=== PATIENT | male | born 1980 | race African-American/Black ===

== ENCOUNTER 2020-06-22 05:58 | Observation (INO) | payer OTHER, SELFPAY ==
[2020-06-22] VITALS (22 sets, daily range): BP systolic 126–166; BP diastolic 64–104; PULSE 49–80; RESP 9–20; TEMP 36.1–37.1; O2SAT 83–100; BMI 28.8
--- NOTE | 2020-06-22 | PATH_ITS ---
[facility] Accession Number: [id number] . 01 Material submitted: . gallbladder - GALLBLADDER AND CONTENTS . 01 Clinical history: . SEVERE STOMACH PAIN X 4 DAYS . 02 Diagnosis: Gallbladder and Contents, Cholecystectomy: Cholelithiasis with mild chronic and active cholecystitis. One benign cystic duct lymph node. No evidence of neoplasm. MRV 06/27/2020 1615 Local . 02 Electronically signed: . Christ Espinosa MD, PhD, Pathologist NPI- [id number] . 01 Gross description: . Received in formalin, labeled gallbladder and contents, and consists of an 8.0 x 3.0 x 2.2 cm partially disrupted gallbladder with a 0.2 cm in diameter cystic duct. The serosa is serra-pink and smooth. Opening reveals serra-green mucoid material. There is a 1.2 x 1.0 x 1.0 cm serra-green bosselated cholelith firmly lodged within the neck of the specimen. The mucosa is serra-pink and velvety, and the wall thickness measures 0.2 cm. A 1.2 x 0.8 x 0.7 cm serra pericystic lymph node is identified. Wax Blender sections are submitted. . A1: cystic duct margin, en face (black), cystic duct cross-section and body and fundus. A2: bisected lymph node. ([id number]) /MRV 06/23/2020 1414 Local . 02 Pathologist provided ICD-10: K80.67, K81.2 . 02 CPT . 758203 Performed at: [address] [facility] [address], [place], [place] [id number] MD Jose Guadalupe Garg MD Phone: [phone] Performed at: [facility] [place] [address] [place] [id number] MD Deana Alvarez MD Phone: [phone]
[2020-06-22] MEDS: HYDROMORPHONE 0.5 MG INJ IV ×2 (07:08→08:04)
[2020-06-22] MEDS: SODIUM CHLORIDE 0.9% 1,000 ML 1000 ML IV (07:09)
[2020-06-22] MEDS: ONDANSETRON 4 MG/2 ML INJ IV (07:09)
[2020-06-22 07:21] LABS: Add Manual Diff / Slide Review NO; Alanine Aminotransferase 48 IU/L (<50); Albumin 3.9 g/dL (3.5-5.0); Albumin Globulin Ratio 1.1 (1.0-2.8); Alkaline Phosphatase 94 U/L (38-126); Aspartate Aminotransferase 41 IU/L (17-59); Basophils Absolute Auto 0 /uL (0-100); Basophils Percent Auto 0.5 % (0-2); Bilirubin Total 0.5 mg/dL (0.2-1.3); Blood Urea Nitrogen 12 mg/dL (9-20); Calcium 8.9 mg/dL (8.4-10.2); Carbon Dioxide 29 mmol/L (22-32); Chloride 107 mmol/L (98-107); Eosinophils Absolute Auto 200 /uL (0-450); Eosinophils Percent Auto 1.6 % (2-4); Estimated Glomerular Filt Rate > 60.0 mL/min (>60); Globulin 3.6 g/dL (1.7-4.1); Glucose 110 mg/dL (70-100); HEMOLYSIS < 15 (0-50); Hematocrit 47.8 % (41-53); Hemoglobin 15.5 g/dL (13.5-17.5); Lipase 48 U/L (23-300); Lymphocytes Absolute Auto 2100 /uL (1100-4500); Lymphocytes Percent Auto 20.9 % (25-40); Mean Corpuscular HGB Conc 32.3 % (30-36); Mean Corpuscular Hemoglobin 28.8 PG (26-34); Mean Corpuscular Volume 89.1 fL (80-100); Monocytes Absolute Auto 600 /uL (0-900); Monocytes Percent Auto 6.3 % (3-14); Neutrophils Absolute Auto 7100 /uL (1500-7000); Neutrophils Percent Auto 70.7 % (50-75); Platelet Count 295 X10^3/uL (150-400); Potassium 4.1 mmol/L (3.4-5.1); Red Blood Cell Count 5.37 X10^6/uL (4.5-5.9); Red Cell Distribution Width 14.7 % (11.6-14.8); Sodium 138 mmol/L (137-145); Total Protein 7.5 g/dL (6.3-8.2); White Blood Cell Count 10.1 X10^3/uL (4.5-11.0)
--- NOTE | 2020-06-22 07:29 | ED_ITS ---
HPI - Abdominal Pain General Chief Complaint: Abdominal Pain Stated Complaint: Severe stomach pain x4 days Time Seen by Provider: 06/22/20 06:07 Source: patient Mode of arrival: Ambulatory Limitations: no limitations History of Present Illness HPI narrative: 40M non smoker with history of gallbladder disease presents with his and the chief complaint of 4 days of worsening epigastric and RUQ pain. His pain seems to be gradually worsening, associated with nausea and is likely worsened by eating and drinking. He denies use of alcohol or street drugs. He denies any recent injury or dietary change. He was seen and evaluated at an outside facility over the summer and had a very thorough evaluation with shad ssuring lab work but imaging suggesting the possibility of a gallstone in the absence of findings consistent with cholecystitis. His last oral intake was 10:00 p.m. last night. He denies classic symptoms of COVID-19 such is headache, sore throat, cough, shortness of breath or fever. MD complaint: abdominal pain Onset (ago): hour(s) Pain Consistency: constant Location: RUQ and epigastric Severity: severe Quality: cramping and stabbing Radiation: RUQ and epigastric Relieving factors: nothing Exacerbating factors: eating Associated symptoms: nausea Related Data Home Medications Medication Instructions Recorded Confirmed No Known Home Medications 06/22/20 06/22/20 Allergies Allergy/AdvReac Type Severity Reaction Status Date / Time No Known Drug Allergies Allergy Verified 06/22/20 08:03 Review of Systems Constitutional Constitutional: Denies chills, Denies fatigue, Denies fever(s), Denies frequent falls, Denies lethargy and Denies weakness Eyes Eyes: Denies change in vision, Denies eye discharge, Denies irritation and Denies loss of vision ENT Ears, Nose, Mouth, and Throat: Denies change in voice, Denies dizziness, Denies neck pain, Denies sore throat and Denies throat swelling Cardiovascular Cardiovascular: Denies chest pain, Denies irregular heart rhythm, Denies lightheadedness, Denies palpitations, Denies dyspnea, Denies dyspnea on exertion and Denies orthopnea Respiratory Respiratory: Denies cough, Denies dyspnea, Denies dyspnea on exertion and Denies wheezing Gastrointestinal Gastrointestinal: Reports abdominal pain, Denies change in bowel habits, Denies diarrhea, Reports nausea and Denies vomiting Musculoskeletal Musculoskeletal: Denies neck pain and Denies numbness Integumentary/Breasts Skin/Breast: Denies pruritus, Denies erythema, Denies rash and Denies wounds Neurologic Neurologic: Denies behavioral changes, Denies confusion, Denies dizziness, Denies frequent falls, Denies loss of vision, Denies numbness and Denies weakness Psychiatric Psychiatric: Denies anxiety, Denies behavioral changes, Denies confusion, Denies depression, Denies homicidal ideation and Denies suicidal ideation Endocrine Endocrine: Denies fatigue, Denies flushing and Denies palpitations Hematologic/Lymphatic Hematologic/Lymphatic: Denies easy bruising Allergic/Immunologic Allergic/Immunologic: Denies urticaria, Denies throat swelling and Denies wheezing Patient History Medical History History of femur fracture (Acute) Social History household members: spouse Smoking Status: Current every day smoker alcohol intake: current Smoking Status: Current every day smoker alcohol intake frequency: a few times a month Substance Use Type: does not use Exam Narrative Exam Narrative: GENERAL: [40] year old patient appears stated age. Well- nourished, well-developed patient, in mild distress. Holding an emesis bag, rubbing his upper abdomen, clearly in pain HEAD: Atraumatic. Normocephalic. EYES: Pupils equal round and reactive. Extraocular motions intact. No scleral icterus. No injection or drainage. ENT: Nose without bleeding, purulent drainage. Throat without erythema, tonsillar hypertrophy or exudate. Airway patent. NECK: Trachea midline. Non tender CARDIOVASCULAR: Regular rate and rhythm without murmurs, gallops, or rubs. RESPIRATORY: Clear to auscultation. Breath sounds equal bilaterally. No wheezes, rales, or rhonchi. GASTROINTESTINAL: Abdomen soft, significant tenderness in the epigastrium and right upper quadrant, nondistended. EXTREMITIES: No edema or joint tenderness. BACK: Nontender without deformity or crepitance. No flank tenderness. NEURO: AOx3. SKIN: No rash or erythema of visible areas Initial Vital Signs Initial Vital Signs: Vital Signs Temperature 98.7 F 06/22/20 06:05 Pulse Rate 60 06/22/20 06:05 Respiratory Rate 18 06/22/20 06:05 Blood Pressure 162/95 H 06/22/20 06:05 Pulse Oximetry 100 06/22/20 06:05 Course Orders Ordered: ED Orders 06/22/20 06:10 Complete Blood Count AUTO DIFF Stat Comprehensive Metabolic Panel Stat Lipase Stat 06/22/20 07:32 US abdomen limited Stat 06/22/20 08:56 COVID19 -ED/INPAT/OR/L&D Stat Acetaminophen (Tylenol) 975 mg PO PACUNOW PRN PRN Reason: Pain, Mild (1-3) Albuterol (Ventolin) 2.5 mg INH NOW PRN PRN Reason: Coughing, Wheezing, Dyspnea Benzocaine (Cepacol Lozenge) 1 each PO PRN PRN PRN Reason: Sore Throat Fentanyl (Sublimaze) 0 mcg IV Q5M PRN PRN Reason: Pain, Moderate (4-6) Hydromorphone HCl (Dilaudid) 0 mg IV Q5M PRN PRN Reason: Pain, Moderate (4-6) Hydroxyzine HCl (Vistaril) 25 mg IM NOW PRN PRN Reason: Pain, Mild (1-3) Lactated Ringer's (Lactated Ringers) 1,000 mls @ 42 mls/hr IV CONT [facility] Last Admin: 06/22/20 11:52 Dose: 42 mls/hr Documented by: AKUNZE Lactated Ringer's (Lactated Ringers) 1,000 mls @ 150 mls/hr IV CONT [facility] Last Admin: 06/22/20 12:51 Dose: Not Given Documented by: CWOOD Lactated Ringer's (Lactated Ringers) 1,000 mls @ 120 mls/hr IV CONT [facility] Lorazepam (Ativan) 0.25 mg IV NOW PRN PRN Reason: Anxiety Meperidine HCl (Demerol) 25 mg IV PACUNOW PRN PRN Reason: Moderate pain or shivering Metoclopramide HCl (Reglan) 10 mg IV NOW PRN PRN Reason: Nausea And Vomiting Ondansetron HCl (Zofran) 4 mg IV NOW PRN PRN Reason: Nausea And Vomiting Oxycodone HCl (Percolone) 5 mg PO PACUNOW PRN PRN Reason: Mild or moderate pain Discontinued Medications Bupivacaine HCl (Sensorcaine 0.5% (Pf)) 30 ml INJ NOW ONE Stop: 06/22/20 12:28 Last Admin: 06/22/20 12:27 Dose: 20 ml Documented by: FITO Hydromorphone HCl (Dilaudid) 0.5 mg IV NOW ONE Stop: 06/22/20 07:00 Last Admin: 06/22/20 07:08 Dose: 0.5 mg Documented by: ROSENDA Hydromorphone HCl (Dilaudid) 0.5 mg IV NOW ONE Stop: 06/22/20 07:43 Last Admin: 06/22/20 08:04 Dose: 0.5 mg Documented by: VEE Sodium Chloride (Normal Saline 0.9%) 1,000 mls @ 1,000 mls/hr IV BOLUS ONE Stop: 06/22/20 07:58 Last Infusion: 06/22/20 09:08 Dose: 0 mls/hr Documented by: Admin: 06/22/20 07:09 Dose: 1,000 mls/hr Documented by: ROSENDA Cefazolin Sodium/Dextrose (Ancef) 2 gm in 100 mls @ 200 mls/hr IV INTRA-OP ONE Stop: 06/22/20 11:50 Last Infusion: 06/22/20 12:15 Dose: 0 mls/hr Documented by: Admin: 06/22/20 11:55 Dose: 200 mls/hr Documented by: JESSICA Ondansetron HCl (Zofran) 4 mg IV NOW ONE Stop: 06/22/20 07:00 Last Admin: 06/22/20 07:09 Dose: 4 mg Documented by: ROSENDA Consultations Consultation #1: Call to General surgery for consultation regarding concern for biliary etiology of on going pain Vital Signs Vital signs: Vital Signs - 8 hr 06/22/20 06:05 06/22/20 07:17 06/22/20 07:30 Temperature 98.7 F Pulse Rate 60 51 L 52 L Respiratory Rate 18 14 17 Blood Pressure 162/95 H 152/94 H 162/97 H Pulse Oximetry 100 98 99 06/22/20 08:00 06/22/20 08:30 06/22/20 08:39 Temperature Pulse Rate 49 L 55 L 56 L Respiratory Rate 16 15 15 Blood Pressure 159/91 H 155/89 H 146/94 H Pulse Oximetry 99 98 100 06/22/20 09:00 06/22/20 09:30 Temperature Pulse Rate 59 L 57 L Respiratory Rate 20 20 Blood Pressure 148/92 H 136/84 Pulse Oximetry 98 98 MDM - Abdominal Pain Lab Data Result diagrams: 06/22/20 06:10 06/22/20 06:10 Labs: Lab Results 06/22/20 06/22/20 06/22/20 Range/Units 06:10 06:10 08:56 WBC 10.1 (4.5-11.0) X10^3/uL RBC 5.37 (4.5-5.9) X10^6/uL Hgb 15.5 (13.5-17.5) g/dL Hct 47.8 (41-53) % MCV 89.1 (80-100) fL MCH 28.8 (26-34) PG MCHC 32.3 (30-36) % RDW 14.7 (11.6-14.8) % Plt Count 295 (150-400) X10^3/uL Neut % (Auto) 70.7 (50-75) % Lymph % (Auto) 20.9 L (25-40) % [place] % (Auto) 6.3 (3-14) % Eos % (Auto) 1.6 L (2-4) % Baso % (Auto) 0.5 (0-2) % Neut # (Auto) 7100 H (1941-6795) /uL Lymph # (Auto) 2100 (3700-8332) /uL [place] # (Auto) 600 (0-900) /uL Eos # (Auto) 200 (0-450) /uL Baso # (Auto) 0 (0-100) /uL Sodium 138 (137-145) mmol/L Potassium 4.1 (3.4-5.1) mmol/L Chloride 107 (98-107) mmol/L Carbon Dioxide 29 (22-32) mmol/L BUN 12 (9-20) mg/dL Creatinine 0.86 (0.66-1.25) mg/dL Estimated GFR > 60.0 (>60) mL/min BUN/Creatinine Ratio 14.0 (6-22) Glucose 110 H (70-100) mg/dL Calcium 8.9 (8.4-10.2) mg/dL Total Bilirubin 0.5 (0.2-1.3) mg/dL AST 41 (17-59) IU/L ALT 48 (<50) IU/L Alkaline Phosphatase 94 (38-126) U/L Total Protein 7.5 (6.3-8.2) g/dL Albumin 3.9 (3.5-5.0) g/dL Globulin 3.6 (1.7-4.1) g/dL Albumin/Globulin Ratio 1.1 (1.0-2.8) Lipase 48 (23-300) U/L COVID-19 PCR Negative (Negative) Discharge Plan Departure Patient Disposition: Admitted as Observation Clinical Impression: Cholelithiasis with acute cholecystitis Qualifiers: Biliary obstruction: without biliary obstruction Qualified Code(s): K80.00 - Calculus of gallbladder with acute cholecystitis without obstruction Discharge Date/Time: 06/22/20 10:47 Admit Date/Time: 06/22/20 09:57 Admit Provider: Silvestre Humphreys
--- NOTE | 2020-06-22 07:32 | DI.US.S_ITS ---
PROCEDURE: US ABDOMEN LIMITED INDICATIONS: EPIGASTRIC PAIN TECHNIQUE: Limited abdominal ultrasound with real-time scanning performed of the right upper quadrant and image documentation. COMPARISON: None. FINDINGS: Liver: Geographic areas of increased hepatic parenchymal attenuation consistent with steatosis. Normal size of the liver. No focal hepatic mass. Portal vein is patent and normal in caliber. Gallbladder: No gallbladder wall thickening or pericholecystic fluid. Small 6-7 millimeter gallstone in the fundus. Biliary ducts: No intrahepatic or extrahepatic biliary ductal dilatation. Pancreas: Visualized portions of the pancreas are sonographically normal. IMPRESSION: Small gallstone with no findings of cholecystitis. Geographic hepatic steatosis. Dictated by: Smith Waldron M.D. on 06/22/2020 at 8:42 Approved by: Smith Waldron M.D. on 06/22/2020 at 8:44
--- NOTE | 2020-06-22 07:38 | PC.NURSE ---
pt spouse out to nursing station, reports husbands pain has increased.
[2020-06-22 09:21] LABS: COVID19 -Nasal RAPID Negative (Negative)
--- NOTE | 2020-06-22 09:55 | PM.HP.1 ---
History of Present Illness History of Present Illness Date Patient Seen: 06/22/20 Time Patient Seen: 09:55 Chief complaint: Severe stomach pain x4 days Narrative: The patient is a gentleman who has been having intermittent mid abdominal and right upper quadrant pain since February. The episodes are becoming more frequent and more intense. This week he has had them for days in a row. He does not associate them with any specific food but he is not on a low-fat diet. He is nauseated but has not vomited. No history of ulcers. Presently his been medicated with pain medicine and is comfortable. This episode has lasted over night. No history of jaundice. Patient History Medical History (Updated 06/22/20 @ 09:58 by López Mishra DO) History of femur fracture (Acute) Family & Social History Safety & Behavioral: Feels Safe in Current Yes Environment Tobacco & Substance use: Smoking Status Current every day smoker alcohol intake frequency a few times a month Substance Use Type does not use Meds Home Medications and Allergies Allergies Allergy/AdvReac Type Severity Reaction Status Date / Time No Known Drug Allergies Allergy Verified 06/22/20 08:03 Review of Systems Review of Systems Narrative: Patient denies double vision pain is eyes earache sore throats. He is nearsighted. No tooth aches. No trouble swallowing. No cough cold. He had did have asthma as a child but has not had any problems since he was a teen. No heart problems or murmurs. No high blood pressure. No black or bloody bowel movements. No vomiting of blood. No history of ulcers. No problems urinating. No blood in his urine or history of kidney stones. No seizures or blackouts. No anxiety or depression. No unusual bruising or bleeding. No new skin issues or lesions. Exam Vital Signs (past 8 hours): - 06/22/20 06:05 06/22/20 07:17 06/22/20 07:30 Temperature 98.7 F Pulse Rate 60 51 L 52 L Respiratory Rate 18 14 17 Blood Pressure 162/95 H 152/94 H 162/97 H Pulse Oximetry 100 98 99 06/22/20 08:00 06/22/20 08:30 06/22/20 08:39 Temperature Pulse Rate 49 L 55 L 56 L Respiratory Rate 16 15 15 Blood Pressure 159/91 H 155/89 H 146/94 H Pulse Oximetry 99 98 100 Oxygen Delivery Method Room Air Narrative Exam Narrative: Cooperative no apparent distress. Eyes are nonicteric. Pupils equal round reactive to light. Conjunctivae are pink. Ears without lesion. He has a roberto. Oral mucosa is dry no open lesions. Teeth are intact. There are no masses or nodes in the neck or supraclavicular areas. Trachea is midline mobile. Thyroid is not enlarged. The no bruit in the neck. Lungs are clear to auscultation without rales or rhonchi. Equal percussion. Heart regular rate and rhythm without murmur gallop. No heave lift or thrill. Abdomen is scaphoid soft. Nontender at this time. No hernias appreciated. No masses. Liver and spleen are not palpably enlarged. Patient's pedal pulses are 2+ dorsalis pedis and tibialis posterior. His legs are hairless (by history chronically so) but he does have hair on his toes. Patient is alert and oriented x3. Speech rate and content are appropriate. Affect is appropriate. I do not see any open lesions of his skin. Objective Labs Result Diagrams: 06/22/20 06:10 06/22/20 06:10 Labs: Laboratory Results - last 24 hr 06/22/20 06/22/20 06/22/20 06:10 06:10 08:56 WBC 10.1 RBC 5.37 Hgb 15.5 Hct 47.8 MCV 89.1 MCH 28.8 MCHC 32.3 RDW 14.7 Plt Count 295 Neut % (Auto) 70.7 Lymph % (Auto) 20.9 L [place] % (Auto) 6.3 Eos % (Auto) 1.6 L Baso % (Auto) 0.5 Neut # (Auto) 7100 H Lymph # (Auto) 2100 [place] # (Auto) 600 Eos # (Auto) 200 Baso # (Auto) 0 Sodium 138 Potassium 4.1 Chloride 107 Carbon Dioxide 29 BUN 12 Creatinine 0.86 Estimated GFR > 60.0 BUN/Creatinine Ratio 14.0 Glucose 110 H Calcium 8.9 Total Bilirubin 0.5 AST 41 ALT 48 Alkaline Phosphatase 94 Total Protein 7.5 Albumin 3.9 Globulin 3.6 Albumin/Globulin Ratio 1.1 Lipase 48 COVID-19 PCR Negative Assessment & Plan Assessment & Plan narrative: Patient with signs and symptoms consistent with symptomatic gallbladder disease. No history or evidence of an elevated bilirubin. Liver function tests have been normal. I would recommend removal of his gallbladder. I have discussed the operation with him including length rationale postoperative issues people encounter. Discussed risks of bleeding, infection, injury to internal organs or ducts which would require major operation to repair, bile leakage and possible hernia. He appears to understand and wishes to proceed.
[2020-06-22] MEDS: LACTATED RINGERS 1,000 ML 42 ML IV ×2 (11:52→14:05)
[2020-06-22] MEDS: CEFAZOLIN 2 GM/100 ML FROZ.PIGGY IV (11:55)
[2020-06-22] MEDS: BUPIVACAINE 0.5% (PF) VIAL 30 ML INJ (12:27)
--- NOTE | 2020-06-22 12:30 | SUR.OPER ---
Supine on padded OR bed, head on pillow, safety belt at thigh, bilateral arms secured on padded arm board <90 degrees abduction. Legs uncrossed. Padded footboard in place. Tape over blanket to secure lower legs.
--- NOTE | 2020-06-22 13:49 | PM.OP.1 ---
Operative Date/Time/Diagnoses Date of procedure: 06/22/20 Time of procedure: 13:49 Pre-op diagnosis: Cholelithiasis cholecystitis Post-op diagnosis: same (Acute cholecystitis with cholelithiasis) Procedure & Clinicians Procedure: Laparoscopic cholecystectomy Same procedure as scheduled: Yes Indications: Intermittent epigastric and right upper quadrant pain with an abnormal ultrasound of the gallbladder Surgeon: Silvestre Byrnes Yes if Unassisted: Yes Anesthesia Type: General Operative Notes Findings: Edematous gallbladder wall. Mucous within the gallbladder itself which was cultured Closure Type: primary Specimen(s): other (Gallbladder) Prosthetic devices, grafts, tissues, transplants, or devices: None Estimated Blood Loss (mL): 5 Procedure in detail: The patient was placed supine on the operating room table and underwent general endotracheal anesthesia. The patient was prepped and draped in the usual fashion. Local anesthetic was infiltrated near the umbilicus and curvilinear incision made and carried down through fascia into the peritoneal cavity. Stay sutures of 0 Vicryl were placed in the fascia. A 12 mm port was placed. The abdomen was insufflated. The patient was repositioned. Local anesthetic was infiltrated in 3 areas under the right costal margin and 3 small incisions made followed by placing 3 5 mm ports under direct laparoscopic camera vision internally. The gallbladder was grasped and elevated. Dissection was begun near its end. A ductal structure singular nature going directly the gallbladder was identified. Some small vascular structures were also identified and there was an artery distinctly attached to the cystic duct. The cystic duct and it was out and 3 clips were placed across each of the structures a were divided leaving 2 in the patient.. The gallbladder was then dissected from its bed in the liver using cautery. It was detached and removed through the umbilical port. The right upper quadrant was examined and irrigated and suctioned free of fluid. Meticulous hemostasis was achieved with cautery. The port sites were all irrigated. The stay sutures at the umbilicus were elevated. A 2 0 PDS suture was placed between them. The Vicryl and PDS sutures were then tied. Local anesthetic was infiltrated around each of the incisions. The skin in all areas was closed with interrupted 4 0 Vicryl subcuticular stitches. Steri-Strips and Mastisol were applied. Band-Aids were placed and the patient was awakened, extubated and taken to the recovery area in good condition. Patient tolerated the procedure well Complications: none Post-operative Condition: stable Disposition: PACU
[2020-06-22] MEDS: KETOROLAC 30 MG/ML VIAL IV (14:13)
[2020-06-22] MEDS: HYDROMORPHONE 2 MG INJ IV (14:16)
--- NOTE | 2020-06-22 14:42 | SUR.PHASEI ---
Report called to Aidee Corcoran
--- NOTE | 2020-06-22 14:59 | SUR.PHASEI ---
Patient transferred to the floor. VS stable. IV saline locked. Abd dressings CDI. Report given to Aidee.
--- NOTE | 2020-06-22 15:27 | PC.NURSE ---
Post-op: Pt returned from OR at 1450, is disoriented, doesn't feel well. Spouse is at bedside. She is comforting to him. Minimal pain at the moment. Has not voided since surgery. Spouse prepared about pt's disorientation before he arrived. He feels better with her beside him. Has not taken any fluids yet. Sleepy for now. Will cont to observe LOC and ensure pt can intake fluids and void.
== END 2020-06-22 17:52 | disposition home or self-care (01) ==
LOC: ED 09:58 → AC 09:58
PROVIDERS: Admitting Provider Specialist; Emergency Provider Emergency Medicine; Visit Provider Specialist
PROC: 0FT44ZZ Resection of Gallbladder, Percutaneous Endoscopic Approach (ICD-10-PCS; CPT 47562; principal; 2020-06-22 12:00)
DX: K80.00 Calculus of gallbladder with acute cholecystitis without obstruction (principal); R10.11 Right upper quadrant pain; F17.210 Nicotine dependence, cigarettes, uncomplicated; Z11.59 Encounter for screening for other viral diseases
CPT/HCPCS: 47562; 36415; 76705; 80053; 81003; 83690; 85025; 87070; 87075; 87205; 87635; 96361; 96374; 96375; 96376; 99219; 99284; G0378; J0330; J0690; J1100; J1170; J1885; J2250; J2405; J2704; J3010

== ENCOUNTER 2023-03-24 10:20 | Emergency (ER) | payer SELFPAY ==
[2020-06-22 14:03] VITALS: BMI 28.8
[2023-03-24] VITALS (13 sets, daily range): BP systolic 156–189; BP diastolic 93–122; PULSE 64–83; RESP 10–17; TEMP 36.6; O2SAT 97–100; BMI 28.8
--- NOTE | 2023-03-24 10:25 | DI.RAD.S_ITS ---
PROCEDURE: XR CHEST 1V INDICATIONS: chest pain TECHNIQUE: One view of the chest was acquired. COMPARISON: None. FINDINGS: Surgical changes and devices: None. Lungs and pleura: Lungs are clear. No pleural effusions or pneumothorax. Mediastinum: Mediastinal contours appear normal. Heart size is normal. Bones and chest wall: No suspicious bony lesions. Overlying soft tissues appear unremarkable. IMPRESSION: No acute cardiopulmonary findings Approved by: Zhen Solitario M.D. on 03/24/2023 at 10:34
[2023-03-24 10:52] LABS: Add Manual Diff / Slide Review NO; Basophils Absolute Auto 100 /uL (0-100); Basophils Percent Auto 0.8 % (0-2); Eosinophils Absolute Auto 200 /uL (0-450); Eosinophils Percent Auto 2.2 % (2-4); Hematocrit 51.3 % (41-53); Hemoglobin 17.5 g/dL (13.5-17.5); Lymphocytes Absolute Auto 2200 /uL (1100-4500); Lymphocytes Percent Auto 27.3 % (25-40); Mean Corpuscular HGB Conc 34.1 % (30-36); Mean Corpuscular Hemoglobin 29.3 PG (26-34); Mean Corpuscular Volume 85.8 fL (80-100); Monocytes Absolute Auto 400 /uL (0-900); Monocytes Percent Auto 5.3 % (3-14); Neutrophils Absolute Auto 5100 /uL (1500-7000); Neutrophils Percent Auto 64.4 % (50-75); Platelet Count 357 X10^3/uL (150-400); Red Blood Cell Count 5.97 X10^6/uL (4.5-5.9); Red Cell Distribution Width 14.4 % (11.6-14.8); White Blood Cell Count 7.9 X10^3/uL (4.5-11.0)
[2023-03-24] MEDS: ASPIRIN 81 MG CHEW TAB 324 MG PO (10:52)
[2023-03-24 10:59] LABS: Prothrombin Time 11.5 SECONDS (10.1-12.7)
[2023-03-24 11:00] LABS: Alanine Aminotransferase 41 IU/L (<50); Albumin 4.8 g/dL (3.5-5.0); Alkaline Phosphatase 105 U/L (38-126); Aspartate Aminotransferase 46 IU/L (17-59); BUN Creatinine Ratio 12.8 (6-22); Bilirubin Total 1.2 mg/dL (0.2-1.3); Blood Urea Nitrogen 11 mg/dL (9-20); Calcium 9.4 mg/dL (8.4-10.2); Carbon Dioxide 26 mmol/L (22-32); Chloride 107 mmol/L (98-107); Creatine Kinase 524 U/L (55-170); Estimated Glomerular Filt Rate > 60 mL/min (>60); Globulin 4.9 g/dL (1.7-4.1); Glucose 99 mg/dL (70-100); Lipase 51 U/L (23-300); Potassium 4.1 mmol/L (3.4-5.1); Sodium 143 mmol/L (137-145); Total Protein 9.7 g/dL (6.3-8.2)
[2023-03-24 11:02] LABS: PTT Partial Thromboplastin Tim 25 SECONDS (26-36)
--- NOTE | 2023-03-24 11:08 | ED_ITS ---
HPI - Chest Pain General Chief Complaint: Chest Pain Stated Complaint: chest pain Time Seen by Provider: 03/24/23 10:25 History of Present Illness HPI narrative: 42M nonsmoker with history of untreated hypertension presents with his significant other and a chief complaint of brief episodes of central chest pain for the past week or so. He states they come and go without obvious provocation or palliation. He states that it is rather sharp and stabbing intense last a few minutes at most. He denies any radiation of the discomfort nor associated symptoms such as dizziness, weakness or lightheadedness. He has no headaches or blurred vision and denies nausea, vomiting or diarrhea. He has no change with exertion, no exercise intolerance, no association with food or drink. He denies any recent trauma or injury, no travel, no history of blood clot Related Data Previous Rx's Medication Instructions Recorded Work Excuse #1 ea 06/22/20 ibuprofen 600 mg tablet 600 mg PO QID PRN pain #20 tabs 06/22/20 oxycodone-acetaminophen 5 mg-325 See Rx Instructions .Route 06/22/20 mg tablet (Percocet) .COMPLEX PRN painful procedure #14 tabs amlodipine 10 mg tablet 10 mg PO DAILY #30 tabs 03/24/23 Allergies Allergy/AdvReac Type Severity Reaction Status Date / Time No Known Drug Allergies Allergy Verified 06/22/20 08:03 Review of Systems Review of Systems Narrative: GENERAL: Denies chills, fatigue, malaise, fever, sweats. HEENT: Denies sinus pain, ear pain, sore throat, difficulty swallowing, dizziness. RESPIRATORY: Denies dyspnea, cough, wheezing, hemoptysis, sputum. CARDIOVASCULAR: See HPI GASTROINTESTINAL: Denies nausea, vomiting, abdominal pain, diarrhea, constipatio n, melena. : Denies dysuria, frequency, incontinence, hematuria, urinary retention. MUSCULOSKELETAL: denies weakness, joint pain, or bony pain SKIN: Denies rash, skin lesions, or other NEUROLOGIC: Denies weakness, headache, numbness, change in speech, confusion, seizures, incoordination. PSYCHIATRIC: No concerning psychosocial issues. 12 point review of systems is negative except for those stated above Patient History Medical History (Updated 03/24/23 @ 14:05 by López Mishra DO) History of femur fracture Social History household members: spouse Smoking Status: Current every day smoker alcohol intake: current Smoking Status: Current every day smoker alcohol intake frequency: a few times a month Substance Use Type: does not use Exam Narrative Exam Narrative: GENERAL: 42] year old patient appears stated age. Well-developed patient, in mild distress. HEAD: Atraumatic. Normocephalic. EYES: Pupils equal round and reactive. Extraocular motions intact. No scleral icterus. No injection or drainage. ENT: Nose without bleeding, purulent drainage. Throat without erythema, tonsillar hypertrophy or exudate. Airway patent. NECK: Trachea midline. Non tender CARDIOVASCULAR: Regular rate and rhythm without murmurs, gallops, or rubs. RESPIRATORY: Clear to auscultation. Breath sounds equal bilaterally. No wheezes, rales, or rhonchi. GASTROINTESTINAL: Abdomen soft, non-tender, nondistended. EXTREMITIES: No edema or joint tenderness. BACK: Nontender without deformity or crepitance. No flank tenderness. NEURO: AOx3. SKIN: No rash or erythema of visible areas Initial Vital Signs Initial Vital Signs: Vital Signs Temperature 97.8 F 03/24/23 10:25 Pulse Rate 83 03/24/23 10:25 Respiratory Rate 16 03/24/23 10:25 Blood Pressure 187/122 H 03/24/23 10:25 Pulse Oximetry 99 03/24/23 10:25 Oxygen Delivery Method Room Air 03/24/23 10:25 Scores HEART Score Heart Score history: Slightly Suspicious Heart Score EKG: Normal Heart Score Age: < 45 years old Heart Score risk factors: 1-2 risk factors Heart Score troponin: < or = to normal limit Heart Score Total: 1 PERC Score Age greater than or equal to 50 years: No Heart rate greater than or equal to 100 bpm: No Room Air O2 Sat less than 95%: No Unilateral leg swelling: No Recent trauma or surgery: No Hemoptysis: No Prior PE or DVT: No Hormone Use: No Total PERC Score: 0 Wells' Criteria for PE Clinical signs and symptoms of DVT: No PE is #1 Dx or equally likely: No Heart rate > 100: No Immobilization at least 3 days or surg in previous 4 weeks: No History of PE or DVT: No Hemoptysis: No Malignancy w/Treatment within 6 months or palliative: No Wells' PE Score total: 0 Course Orders Ordered: ED Orders 03/24/23 10:25 XR chest 1V Stat 03/24/23 10:30 C-Reactive Protein Quant Stat Complete Blood Count AUTO DIFF Stat Comprehensive Metabolic Panel Stat Erythrocyte Sedimentation Rate Stat Lipase Stat Magnesium Stat PTT Partial Thromboplastin Simone Stat Prothrombin Time INR Stat Troponin & CK Cardiac Panel Stat EKG-12 Lead Stat 03/24/23 13:30 Troponin & CK Cardiac Panel Stat Discontinued Medications Amlodipine Besylate (Amlodipine 5 Mg Tablet) 10 mg PO NOW ONE Stop: 03/24/23 11:09 Last Admin: 03/24/23 11:32 Dose: 10 mg Documented By: JASS Aspirin (Aspirin 81 Mg Chew Tab) 324 mg PO NOW ONE Stop: 03/24/23 10:26 Last Admin: 03/24/23 10:52 Dose: 324 mg Documented By: JASS Vital Signs Vital signs: Vital Signs - 8 hr 03/24/23 10:25 03/24/23 10:26 03/24/23 10:30 Temperature 97.8 F Pulse Rate 83 77 Respiratory Rate 16 Blood Pressure 187/122 H 189/122 H Pulse Oximetry 99 99 Oxygen Delivery Method Room Air 03/24/23 10:30 03/24/23 11:00 03/24/23 11:00 Temperature Pulse Rate 75 70 Respiratory Rate 14 10 L Blood Pressure 170/102 H Pulse Oximetry 100 98 Oxygen Delivery Method 03/24/23 11:15 03/24/23 11:15 03/24/23 11:30 Temperature Pulse Rate 66 Respiratory Rate 11 L Blood Pressure 168/104 H 163/101 H Pulse Oximetry 97 Oxygen Delivery Method 03/24/23 11:30 03/24/23 11:45 03/24/23 11:45 Temperature Pulse Rate 65 67 Respiratory Rate 12 17 Blood Pressure 156/102 H Pulse Oximetry 97 100 Oxygen Delivery Method 03/24/23 12:00 03/24/23 12:01 03/24/23 12:01 Temperature Pulse Rate 69 68 Respiratory Rate 17 13 Blood Pressure 166/110 H Pulse Oximetry 99 98 Oxygen Delivery Method 03/24/23 12:30 03/24/23 12:30 03/24/23 13:00 Temperature Pulse Rate 64 Respiratory Rate Blood Pressure 165/103 H 157/93 H Pulse Oximetry 98 Oxygen Delivery Method 03/24/23 13:00 03/24/23 13:30 03/24/23 13:30 Temperature Pulse Rate 69 70 Respiratory Rate 15 14 Blood Pressure 167/102 H Pulse Oximetry 97 99 Oxygen Delivery Method 03/24/23 14:00 03/24/23 14:00 Temperature Pulse Rate 77 Respiratory Rate 17 Blood Pressure 164/101 H Pulse Oximetry 98 Oxygen Delivery Method Room Air MDM - Chest Pain Lab Data 03/24/23 10:30 03/24/23 10:30 Labs: Lab Results 03/24/23 03/24/23 03/24/23 Range/Units 10:30 10:30 10:30 WBC 7.9 (4.5-11.0) X10^3/uL RBC 5.97 H (4.5-5.9) X10^6/uL Hgb 17.5 (13.5-17.5) g/dL Hct 51.3 (41-53) % MCV 85.8 (80-100) fL MCH 29.3 (26-34) PG MCHC 34.1 (30-36) % RDW 14.4 (11.6-14.8) % Plt Count 357 (150-400) X10^3/uL Neut % (Auto) 64.4 (50-75) % Lymph % (Auto) 27.3 (25-40) % [place] % (Auto) 5.3 (3-14) % Eos % (Auto) 2.2 (2-4) % Baso % (Auto) 0.8 (0-2) % Neut # (Auto) 5100 (9284-6695) /uL Lymph # (Auto) 2200 (6650-4502) /uL [place] # (Auto) 400 (0-900) /uL Eos # (Auto) 200 (0-450) /uL Baso # (Auto) 100 (0-100) /uL ESR (0-15) MM/HR PT 11.5 (10.1-12.7) SECONDS INR 1.0 (0.9-1.3) APTT 25 L (26-36) SECONDS Sodium 143 (137-145) mmol/L Potassium 4.1 (3.4-5.1) mmol/L Chloride 107 (98-107) mmol/L Carbon Dioxide 26 (22-32) mmol/L BUN 11 (9-20) mg/dL Creatinine 0.86 (0.66-1.25) mg/dL Estimated GFR > 60 (>60) mL/min BUN/Creatinine Ratio 12.8 (6-22) Glucose 99 (70-100) mg/dL Calcium 9.4 (8.4-10.2) mg/dL Magnesium 2.0 (1.6-2.3) mg/dL Total Bilirubin 1.2 (0.2-1.3) mg/dL AST 46 (17-59) IU/L ALT 41 (<50) IU/L Alkaline Phosphatase 105 (38-126) U/L Total Creatine Kinase 524 H (55-170) U/L Troponin I < 0.012 (0.01-0.034) ng/mL C-Reactive Protein (<1.0) mg/dL Total Protein 9.7 H (6.3-8.2) g/dL Albumin 4.8 (3.5-5.0) g/dL Globulin 4.9 H (1.7-4.1) g/dL Albumin/Globulin Ratio 1.0 (1.0-2.8) Lipase 51 (23-300) U/L 03/24/23 03/24/23 03/24/23 Range/Units 10:30 10:30 13:30 WBC (4.5-11.0) X10^3/uL RBC (4.5-5.9) X10^6/uL Hgb (13.5-17.5) g/dL Hct (41-53) % MCV (80-100) fL MCH (26-34) PG MCHC (30-36) % RDW (11.6-14.8) % Plt Count (150-400) X10^3/uL Neut % (Auto) (50-75) % Lymph % (Auto) (25-40) % [place] % (Auto) (3-14) % Eos % (Auto) (2-4) % Baso % (Auto) (0-2) % Neut # (Auto) (7344-2011) /uL Lymph # (Auto) (1466-7654) /uL [place] # (Auto) (0-900) /uL Eos # (Auto) (0-450) /uL Baso # (Auto) (0-100) /uL ESR 1 (0-15) MM/HR PT (10.1-12.7) SECONDS INR (0.9-1.3) APTT (26-36) SECONDS Sodium (137-145) mmol/L Potassium (3.4-5.1) mmol/L Chloride (98-107) mmol/L Carbon Dioxide (22-32) mmol/L BUN (9-20) mg/dL Creatinine (0.66-1.25) mg/dL Estimated GFR (>60) mL/min BUN/Creatinine Ratio (6-22) Glucose (70-100) mg/dL Calcium (8.4-10.2) mg/dL Magnesium (1.6-2.3) mg/dL Total Bilirubin (0.2-1.3) mg/dL AST (17-59) IU/L ALT (<50) IU/L Alkaline Phosphatase (38-126) U/L Total Creatine Kinase 413 H (55-170) U/L Troponin I < 0.012 (0.01-0.034) ng/mL C-Reactive Protein < 0.5 (<1.0) mg/dL Total Protein (6.3-8.2) g/dL Albumin (3.5-5.0) g/dL Globulin (1.7-4.1) g/dL Albumin/Globulin Ratio (1.0-2.8) Lipase (23-300) U/L ECG Data Interpretation: [1030] EKG is normal sinus rhythm rate [82 ] and free of any signs of ischemia or ectopy. No ST segmental elevation or depression. No T wave inversions MDM Narrative Medical decision making narrative: CC: 42-year-old male with episodes of chest pain Complicating co-morbidities: Untreated hypertension Data collected from: Patient Medical records reviewed: Prior notes reviewed in our EMR Differential considered, but not limited to: Cardiac ischemia versus pulmonary embolism versus musculoskeletal versus esophageal spasm versus other Exam documented above, pertinent findings include: Heart rate regular, lungs clear, nonlabored breathing, no reproducible pain Lab Test results independently reviewed as above. Pertinent findings: Independently reviewed EKG as above Imaging studies independently reviewed:CXR NAP Scores Used: HEART, Wells, PERC Treatments: Amlodipine Re-evaluations: patient resting comfortably. Reasonable decrease in BP, down to the 160s Discussion: 42-year-old male presents with 1 week of episodic chest pain. Low risk in its description, no exertional components, no radiation no shortness of breath, nausea, diaphoresis. Heart score low, EKGs nonischemic, troponin x2 negative. Pulmonary embolism considered but thought extremely unlikely given history and physical exam, WELLS low risk, PERC negative. Disposition: see below, along with detailed discharge instructions that have been reviewed with patient as well as indications for ED re-evaluation and additional outpatient follow up Discharge Plan Departure Patient Disposition: Home Clinical Impression: Atypical chest pain Instructions: DI for Atypical Chest Pain Activity Restrictions/Additional Instructions: *You have been diagnosed with [atypical chest pain, hypertension] *What to do: *Please continue to take your regular medications as directed. [ x] New medication prescriptions sent to your pharmacy: [[facility] ] [ ] New medication written as a paper prescription [ ] No new medications given *Please follow up with your primary care provider in 2-3 days, call for an stef ointment. Let them know you were seen in the Emergency Department and that we ask that you be seen in follow up. We will electronically transmit a record of today's note if your PCP is in our system *If you do not have a primary care provider please contact the [facility] Resource line at [phone]. They will ask some questions about your medical history and help get you set up with a doctor in the community. *Return to Emergency Department if you should have any new, worsening or con cerning symptoms, such as [fever greater than 101 F, shaking chills, worsening pain, persistent vomiting or other bothersome symptoms] Prescriptions: New amlodipine 10 mg tablet 10 mg PO DAILY Qty: 30 0RF No Action oxycodone-acetaminophen [Percocet] 5-325 mg tablet See Rx Instructions .ROUTE .COMPLEX PRN (Reason: painful procedure) Qty: 14 0RF Rx Instructions: Take 1 or 2 pills every 6 hours if needed for pain. May constipate. ibuprofen 600 mg tablet 600 mg PO QID PRN (Reason: pain) Qty: 20 0RF Rx Instructions: Take with food if possible (DME) Work Excuse Qty: 1 0RF Rx Instructions: Excuse from work until June. May need extension depending upon progress. Stand Alone Forms: Patient Portal/API
[2023-03-24 11:10] LABS: Troponin I < 0.012 ng/mL (0.01-0.034)
[2023-03-24 11:12] LABS: Erythrocyte Sedimentation Rate 1 MM/HR (0-15)
[2023-03-24 11:14] LABS: C-Reactive Protein Quant < 0.5 mg/dL (<1.0)
[2023-03-24] MEDS: AMLODIPINE 5 MG TABLET 10 MG PO (11:32)
[2023-03-24 13:54] LABS: Creatine Kinase 413 U/L (55-170)
[2023-03-24 14:06] LABS: Troponin I < 0.012 ng/mL (0.01-0.034)
== END 2023-03-24 14:45 | disposition home or self-care (01) ==
PROVIDERS: Emergency Provider Emergency Medicine
DX: R07.89 Other chest pain (principal); I10 Essential (primary) hypertension
CPT/HCPCS: 71045; 80053; 82550; 83690; 83735; 84484; 85025; 85610; 85651; 85730; 86140; 93005; 93010; 99283; 99284